=== PATIENT | female | born 1945 | race Asian ===

== ENCOUNTER 2017-01-26 11:48 | Emergency (ER) | payer OTHER, MEDICARE ==
[~2017-01-26] VITALS: Ht 167.6 cm; Wt 93.4 kg
[~2017-01-26 11:48] MED LIST: ASA LOW DOSE81 MG PO; DIPY200C PO; HYZAAR1 TA2 PO; VYTORIN1 TA2 PO
[2017-01-26] MEDS ORDERED: LEVO-T50 MCG PO (12:04)
[2017-01-26] MEDS ORDERED: HYZAAR1 TA2 PO (12:04)
[2017-01-26] MEDS ORDERED: CLOP75TA2 PO (12:05)
[2017-01-26] MEDS ORDERED: METF100038 PO (12:05)
[2017-01-26] MEDS ORDERED: GLIM2TAB PO (12:06)
[2017-01-26] MEDS ORDERED: LIPITOR80 MG PO (12:06)
[2017-01-26] MEDS ORDERED: ALLO100T22 PO (12:07)
[2017-01-26] MEDS ORDERED: ROPINIROLE3 MG PO (12:07)
[2017-01-26] MEDS ORDERED: OMEP40CA PO (12:07)
[2017-01-26] MEDS ORDERED: ZANAFLEX2 MG PO (12:08)
[2017-01-26] MEDS ORDERED: ZANTAC300 MG PO (12:08)
[2017-01-26] MEDS ORDERED: FERROCITE PO (12:09)
[2017-01-26 13:04] VITALS: BP 109/57; TEMP 98
== END 2017-01-26 13:06 | disposition home or self-care (01) ==
LOC: ED 11:48
DX: K52.89 Other specified noninfective gastroenteritis and colitis (principal)
CPT/HCPCS: 96372; 99283; J0500

== ENCOUNTER 2022-06-24 13:41 | Emergency (ER) | payer OTHER ==
[~2022-06-24 13:41] MED LIST changes: +ALLO100T22 PO; +CLOP75TA2 PO; +FERROCITE PO; +GLIM2TAB PO; +LEVO-T50 MCG PO; +LIPITOR80 MG PO; +METF100038 PO; +OMEP40CA PO; +ROPINIROLE3 MG PO; +ZANAFLEX2 MG PO; +ZANTAC300 MG PO
== END 2022-06-24 15:06 | disposition left against medical advice (07) ==
LOC: ED 13:41
DX: Z53.21 Procedure and treatment not carried out due to patient leaving prior to being seen by health care provider (principal); W19.XXXA Unspecified fall, initial encounter
CPT/HCPCS: 99281

== ENCOUNTER 2022-12-12 09:01 | Outpatient (CLI) | payer OTHER ==
[~2022-12-12 09:01] MED LIST changes: +ALLO300T23 PO; +CELE200C2 PO; +COZAAR100 MG PO; +CYCLOBENZAPRINE5 MG PO; +EQL IRON SUPPL325 MG PO; +EUTHYROX100 MCG PO; +EZET10TA13 PO; +FARXIGA10 MG PO; +GABA300C2 PO; +HYDR25TA60 PO; +NATURAL ZINC50 MG PO; +NOVOLOG FL100 UNIT/M SC; +ONE DAILY FOR WOME1 PO
[2022-12-12 09:37] LABS: PLATELET COUNT 355 K/uL (152-353)
[2022-12-12 09:56] LABS: POTASSIUM 4.2 mmol/L (3.6-5.2)
== END 2022-12-12 19:09 | disposition home or self-care (01) ==
LOC: LABW 09:01
PROVIDERS: ATTEND Internal Medicine
DX: E03.8 Other specified hypothyroidism (principal); E11.9 Type 2 diabetes mellitus without complications; E78.49 Other hyperlipidemia; I10 Essential (primary) hypertension
CPT/HCPCS: 36415; 80048; 80061; 80076; 83036; 84443; 85027